=== PATIENT | female | born 1995 | race Hispanic/Latino ===

== ENCOUNTER 2018-05-01 05:19 | Inpatient (IN) | payer OTHER ==
--- NOTE | 2018-04-30 20:40 | PDOC.LDHP ---
Labor and Delivery H&P Chief complaint: scheduled section HPI: 22 yo @ 40w0d by 8 week CRL who presents for repeat CD. Pt has h/o LTCS x1 for arrest of dilation, post operative course complicated by wound infection after failed IOL. Current gestational age (weeks): 40 Due date: 05/01/18 Dating criteria: first trimester ultrasound Grav: 3 Para: 1 OB History Details: 1 LTCS 1 SAB Current complications: none Abnormal US findings: No Past Medical History: Denies Current medications: pre- vitamins Previous surgical history: low tranverse CS Allergies/Adverse Reactions: Allergies Allergy/AdvReac Type Severity Reaction Status Date / Time No Known Allergies Allergy Verified 06/21/14 22:42 Social history: none - Physical Exam Vital signs reviewed and normal: yes General: NAD Heart: RRR Lungs: nonlabored breathing Abdomen: gravid Extremeties: no edema FHT: category 2 (140s, mod timothy, +accels, one late decel) [place] contractions every: q4+ min - Vaginal Exam cm dilated: 1 (cephalic; exam same as last SVE for 1 week ) Effacement: 25% Station: -3 - OB Labs Blood type: A RH: positive Antibody Screen: positive (Non-specific Cold antibody) HIV: negative RPR: negative HEPSAg: negative 1 hour GCT: positive 3 hour GTT: negative GBS: negative Urine drug screen: negative Rubella: immune - Assessment 40w0d IUP Prior LTCS x1 + cold antibody - Plan Plan: to OR for section, informed consent obtained, anesthesia consult for pain management -: Pt has been counseled on TOLAC vs RCD and prefers RCD as she has not undergone spontaneous labor at this time.
[2018-05-01] MEDS ORDERED: Ondansetron HCl/PF 4 MG/2 ML Vial IVP PRN ×3 (06:21→10:19)
[2018-05-01] MEDS ORDERED: Bicitra 30 ML UDCUP PO SCH (06:21)
[2018-05-01] MEDS ORDERED: Acetaminophen 500 MG TAB PO PRN (06:21)
[2018-05-01] MEDS ORDERED: Promethazine HCl 25 MG/ML VIAL IM PRN ×2 (06:21→10:19)
[2018-05-01] MEDS ORDERED: Butorphanol Tartrate 1 MG/ML VIAL SLOW IVP PRN ×2 (06:21→22:00)
[2018-05-01] MEDS ORDERED: CEFAZOLIN/Water 2 GM/20 ML SYRINGE SLOW IVP SCH (06:21)
[2018-05-01 06:36] VITALS: BMI 39.3
[2018-05-01] MEDS: Lactated Ringer's 1,000 ML IV SCH ×4 (06:40→21:14)
[2018-05-01 06:43] LABS: Hemoglobin 12.6 g/dL (12.0-16.0); Mean Corpuscular Hemoglobin 28.1 pg (27.0-31.0); Mean Corpuscular Volume 82.5 fl (81.0-99.0); Mean Platelet Volume 9.3 fL (7.4-10.4); Platelet Count 242 thou/uL (130-400); RBC Distribution Width 12.4 % (11.5-14.5); Red Blood Cell (RBC) Count 4.48 mill/uL (4.20-5.40); White Blood Cell (WBC) Count 9.6 thou/uL (4.8-10.8)
[2018-05-01 07:14] LABS: Syphilis Antibody Nonreactive (Nonreactive); Syphilis Antibody Index 0.04 S/CO (<1.00 Non-Reactive)
[2018-05-01 07:15] LABS: HIV (1/2) Antibody/Antigen Non-Reactive (NonReactive); HIV 1/2 INDEX 0.07 S/CO (<1.00); Hep B Surf Ag Non-Reactive S/CO (NonReactive)
[2018-05-01] MEDS ORDERED: Morphine PF 1 MG/ML SYR ONE (08:02)
[2018-05-01] MEDS ORDERED: PROPOFOL 20 ML ONE (08:03)
[2018-05-01] MEDS ORDERED: ePHEDrine/0.9% NaCl/PF SYRINGE 50 mg/10 ml ONE ×2 (08:06→15:12)
[2018-05-01] MEDS ORDERED: Oxytocin 10 UNITS/ML VIAL ONE ×4 (08:08→09:10)
[2018-05-01] MEDS ORDERED: Succinylcholine Chloride 20 MG/ML 10 ml SYRINGE FS ONE (08:12)
[2018-05-01] MEDS ORDERED: Lidocaine 1.5% w/Epi 1:200K 30 ML VIAL (Epid Use) ONE (08:32)
[2018-05-01] MEDS ORDERED: Bupivacaine 0.75% W/DEXTROSE 8.25% 2 ML AMP ONE (08:32)
[2018-05-01] MEDS ORDERED: Ketorolac Tromethamine 30 MG/ML VIAL ONE ×2 (08:41→15:12)
--- NOTE | 2018-05-01 10:14 | PDOC.OPDEL ---
OB Operative/Delivery Note Delivery Dr/Surgeon: Jessica Villanueva DO Assist: Shu Hennessy MD Pre-Delivery Diagnosis: scheduled section Procedure/Post Delivery Dx: repeat low transverse CS Weeks gestation: 40 Anesthesia: spinal - Findings A Sex: female - 1 min: 8 - 5 min: 9 - Additional Findings/Plan Placenta delivered: spontaneous findings: low transverse hysterotomy without extension, normal tubes, normal ovaries, other (meconium stained AF) Estimated blood loss: 800 cc Compilations/Other Findings: Infant in cephalic presentation Post delivery plan: routine recovery
[2018-05-01] MEDS ORDERED: Promethazine HCl 25 MG SUPP PR PRN (10:19)
[2018-05-01] MEDS ORDERED: Naloxone HCl 0.4 mg/ml Vial IVP PRN ×2 (10:19)
[2018-05-01] MEDS ORDERED: HYDROmorphone 2 MG/ML VIAL SLOW IVP PRN (10:19)
[2018-05-01] MEDS ORDERED: Naloxone HCl 0.4 mg/ml Vial IV PRN (10:19)
[2018-05-01] MEDS ORDERED: diphenhydrAMINE 50 MG/ML VIAL IVP PRN (10:19)
[2018-05-01] MEDS ORDERED: Meperidine HCl/PF 25 MG/ML VIAL SLOW IVP PRN (10:19)
[2018-05-01] MEDS ORDERED: Eucerin (Mineral Oil/Petrolatum,White) 30 gm Jar TOP PRN (10:19)
[2018-05-01] MEDS ORDERED: Morphine 10 MG/ML VIAL ONE (10:29)
[2018-05-01] MEDS ORDERED: Ketorolac Tromethamine 30 MG/ML VIAL IVP SCH (10:30)
[2018-05-01] MEDS ORDERED: Morphine 4 MG/ML VIAL ONE (10:30)
[2018-05-01] MEDS ORDERED: Communication Order-Pharmacy FS SCH (10:30)
[2018-05-01] MEDS ORDERED: Methylergonovine 0.2 MG/ML VIAL IM PRN (10:43)
[2018-05-01] MEDS ORDERED: Bisacodyl 10 MG SUPP PR PRN (10:43)
[2018-05-01] MEDS ORDERED: Simethicone Chewable 80 MG TAB PO PRN (10:43)
[2018-05-01] MEDS ORDERED: diphenhydrAMINE 25 MG CAP PO PRN (10:43)
[2018-05-01] MEDS ORDERED: Ondansetron HCl/PF 4 MG/2 ML Vial ONE (15:12)
--- NOTE | 2018-05-01 18:52 | OP ---
DATE OF PROCEDURE: 05/01/2018 PREOPERATIVE DIAGNOSES: 1. A 40-week 0-day intrauterine . 2. Previous delivery x1. POSTOPERATIVE DIAGNOSES: 1. A 40-week 0-day intrauterine . 2. Previous delivery x1. PROCEDURE: A repeat low transverse delivery via Pfannenstiel skin incision. SURGEON: Jessica Villanueva D.O. CASSANDRA ARCHITECT: Liberty Hennessy M.D. COMPLICATIONS: None. ESTIMATED BLOOD LOSS: 800 mL IV FLUIDS: 2800 mL URINE OUTPUT: 100 mL FINDINGS: Dense scar tissue along the right aspect of the fascia. Normal- appearing uterus, fallopian tubes and ovaries bilaterally. Viable female infant in cephalic presentation with Apgars 8 and 9. Thick meconium stained amniotic fluid and normal appearing placenta. INDICATIONS FOR THE PROCEDURE: Ms. Anjelica Carrillo is a 22-year-old G3, P1 at 40 weeks and 0 days who has a history of 1 prior delivery. The patient was counseled and desired a repeat delivery unless she underwent spontaneous labor. As the patient did not undergo spontaneous labor, she elected to have a repeat delivery at 40 weeks gestation. PROCEDURE IN DETAIL: The patient was brought to the operating room. She was placed under spinal anesthesia, placed in supine position with a leftward tilt. A Mera catheter was placed. She was given Ancef preoperatively for surgical prophylaxis. She was prepped and draped in a sterile fashion and an official timeout was performed. Anesthesia was assessed and proved to be adequate. A skin incision was made using the scalpel, removing the previous scar tissue. This was carried down to underlying fascial layer using the scalpel and the Bovie. The fascia was incised in the midline and then extended bilaterally using Veliz scissors. The area on the right aspect of the fascia has increased bleeding that required coagulation for hemostasis. The superior aspect of the fascial incision was grasped using Temo clamps, tented upwards and dissected free from the underlying rectus abdominis muscle using Veliz scissors. The same was done to the inferior aspect of the fascial incision. The peritoneum was then entered bluntly and extended using both blunt and sharp dissection. An Akshat O retractor was placed into the abdomen and then appropriately secured. A bladder flap was created using Metzenbaum scissors. A low transverse hysterotomy was made using the scalpel and the was delivered in cephalic presentation noting thick meconium stained amniotic fluid which was not anticipated as the patient was not laboring. The 's cord was clamped and cut. was handed to the waiting Neonatology team. Cord sample and cord blood were obtained. The placenta was delivered spontaneously intact. The uterus was cleared of all clot and debris. The hysterotomy was closed in a running locking fashion. There was an area along the right aspect of the hysterotomy that required additional [id number] stitches x2 to create hemostasis. The pelvis was thoroughly irrigated and cleared of all clot and debris. Hysterotomy was again evaluated. There were small areas of oozing along the hysterotomy, which were cauterized using the Bovie. The fallopian tubes and ovaries were evaluated and normal in appearance. The Akshat O retractor was removed from the abdomen. The peritoneum was closed in a running fashion using chromic. The rectus abdominis muscles were evaluated and hemostatic. The fascia was closed in a running fashion from bilateral apices meeting in the midline using 0 PDS. Subcutaneous layer was copiously irrigated and hemostatic using the Bovie. Subcutaneous layer was closed using 3-0 Vicryl and the skin was closed using 4-0 Monocryl and Dermabond and a pressure dressing was applied. The patient tolerated the procedure well. There were no complications. Both she and baby will be transferred to routine recovery. All counts were correct x3. MTDD
[2018-05-01] MEDS: Docusate Calcium (SURFAK) 240 MG CAP PO SCH (21:13)
[2018-05-01] MEDS: Ketorolac Tromethamine 30 MG/ML VIAL IVP PRN (21:13)
[2018-05-01] MEDS ORDERED: HYDROcodone/Acetaminophen 5/325 mg Tablet PO PRN (22:30)
[2018-05-02 05:03] LABS: #Eosinphils 0.1 thou/uL (0.0-0.7); #Lymphocytes 1.3 thou/uL (1.20-3.40); #Monocytes 0.7 thou/uL (0.11-0.59); #Neutrophils 5.6 thou/uL (1.40-6.50); %Basophils 0.1 % (0.0-1.0); %Eosinophils 0.9 % (0.0-10.0); %Monocytes 8.5 % (0.0-10.0); %Neutrophils 73.5 % (42.0-75.0); Hemoglobin 10.4 g/dL (12.0-16.0); Mean Corpuscular HGB CONC 33.2 g/dL (32.0-36.0); Mean Corpuscular Hemoglobin 27.8 pg (27.0-31.0); Mean Corpuscular Volume 83.6 fl (81.0-99.0); Mean Platelet Volume 7.7 fL (7.4-10.4); Platelet Count 162 thou/uL (130-400); RBC Distribution Width 12.5 % (11.5-14.5); Red Blood Cell (RBC) Count 3.75 mill/uL (4.20-5.40); White Blood Cell (WBC) Count 7.6 thou/uL (4.8-10.8)
[2018-05-02] MEDS: Ketorolac Tromethamine 30 MG/ML VIAL IVP PRN (06:19)
--- NOTE | 2018-05-02 07:42 | PDOC.PP ---
Post Progress Note Post Day #: 1 Subjective: Doing well. No concerns. Minimal lochia. Pain controlled. Breast feeding. PO intake tolerated: yes Flatus: yes Ambulation: yes Vital Signs (12 hours) Temp Pulse Resp BP 05/02/18 04:25 98.8 F 91 18 05/02/18 00:20 98.0 F 91 18 108/60 Weight Weight 215 lb - Physical Examination General: NAD Cardiovascular: RRR Respiratory: non-labored breathing Abdominal: no distention, appropriately TTP Fundus firm & at: below umbilicus Extremities: negative homans (B) Skin: CS incision dry & intact Neurological: no gross focal deficits Psychiatric: A&Ox3, normal affect Result Diagrams: 05/02/18 04:45 Additional Labs: Post Labs Blood Type A POSITIVE 05/01/18 06:15 Hep Bs Antigen Non-Reactive S/CO (NonReactive) 05/01/18 06:15 (1) 40 weeks gestation of Code(s): Z3A.40 - 40 WEEKS GESTATION OF Status: Resolved (2) Previous delivery affecting Code(s): O34.219 - MATERNAL CARE FOR UNSP TYPE SCAR FROM PREVIOUS DEL Status: Resolved (3) S/P repeat low transverse Code(s): Z98.891 - HISTORY OF UTERINE SCAR FROM PREVIOUS SURGERY Status: Acute - Assessment/Plan PPD1 VSSAF Continue routine post care. Plan for d/c home tomorrow.
[2018-05-02] MEDS: Prenatal Vitamin 1 TAB PO SCH (10:16)
[2018-05-02] MEDS: Docusate Calcium (SURFAK) 240 MG CAP PO SCH ×2 (10:17→20:47)
[2018-05-02] MEDS: Ibuprofen 800 MG TAB PO SCH ×2 (14:21→20:46)
[2018-05-02] MEDS: HYDROcodone/Acetaminophen 5/325 mg Tablet PO PRN (20:49)
--- NOTE | 2018-05-03 06:12 | PDOC.PP ---
Post Progress Note Post Day #: 2 Subjective: Doing well PO intake tolerated: yes Flatus: yes Ambulation: yes Vital Signs (12 hours) Temp Pulse Resp BP Pulse Ox 05/03/18 04:20 98.8 F 107 H 20 05/03/18 00:15 98.8 F 107 H 20 05/02/18 20:10 98.6 F 83 18 121/64 98 Weight Weight 215 lb Result Diagrams: 05/02/18 04:45 Additional Labs: Post Labs Blood Type A POSITIVE 05/01/18 06:15 Hep Bs Antigen Non-Reactive S/CO (NonReactive) 05/01/18 06:15 (1) S/P repeat low transverse Code(s): Z98.891 - HISTORY OF UTERINE SCAR FROM PREVIOUS SURGERY Status: Acute - Assessment/Plan Doing well No ileus Patient desires home this PM [place] po
--- NOTE | 2018-05-03 06:14 | PDOC.EVN ---
Event Note - Event Note Event Note: DISCHARGE NOTE Please see handwritten discharge summary in record S/P elective repeat CS Discharged home on postop day 2 Incision c/d/i sutured closed. has follow up with WC
[2018-05-03] MEDS: Ibuprofen 800 MG TAB PO SCH ×2 (06:42→14:14)
[2018-05-03] MEDS: HYDROcodone/Acetaminophen 5/325 mg Tablet PO PRN (06:43)
[2018-05-03 08:56] VITALS: BP 116/69; TEMP 97.5
[2018-05-03] MEDS: Docusate Calcium (SURFAK) 240 MG CAP PO SCH (09:42)
[2018-05-03] MEDS: Prenatal Vitamin 1 TAB PO SCH (09:42)
== END 2018-05-03 14:33 | disposition home or self-care (01) | DRG 766 ==
LOC: L&D 05:19 → 3SE 12:18
PROVIDERS: ADMIT Obstetrics & Gynecology; ATTEND Obstetrics & Gynecology
PROC: 10D00Z1 Extraction of Products of Conception, Low, Open Approach (ICD-10-PCS; principal; 2018-05-01)
DX: O34.211 Maternal care for low transverse scar from previous cesarean delivery (principal); Z37.0 Single live birth; Z3A.40 40 weeks gestation of pregnancy
CPT/HCPCS: 36415; 51702; 85025; 85027; 86780; 86850; 86900; 86901; 86922; 87340; 87389; J1885; J2270; J2274; J2405; J2590; J2704; J3490